=== PATIENT | female | born 1970 | race Caucasian/White ===

== ENCOUNTER 2018-11-09 12:09 | Outpatient (CLI) | payer BC, OTHER ==
--- NOTE | 2018-11-09 13:42 | RAD ---
RIGHT FOOT TWO VIEWS: HISTORY: Disability evaluation. Right foot pain. 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 No acute fracture, dislocation, or bony destruction is seen. POS: SID
--- NOTE | 2018-11-09 14:48 | RAD ---
RIGHT ANKLE TWO VIEWS: 11/09/18 HISTORY: Disability evaluation, right ankle pain. FINDINGS/IMPRESSION: No acute fracture, dislocation, or bony destruction is seen. 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
== END 2018-11-09 12:10 | disposition home or self-care (01) ==
LOC: NAV RAD 12:09
PROVIDERS: ATTEND Family Medicine
DX: Z02.71 Encounter for disability determination (principal); Z89.431 Acquired absence of right foot